=== PATIENT | male | born 1995 | race Caucasian/White ===

== ENCOUNTER → 2017-01-12 | Outpatient (CLI) | payer OTHER ==
--- NOTE | 2017-01-12 17:58 | REP ---
CT study of the right hip without contrast: History: Right femoral neck fracture possible on radiographs from this date done at [facility]. Sudden onset of pain while running. Technique: Helical scanning is acquired and 3 mm axial images are generated and viewed at bone and soft-tissue window settings. Coronal and sagittal multiplanar reformation images are reviewed. CT findings: There is no evidence of fracture in the proximal femur or right hemipelvis. There is a small accessory ossicle, which is well corticated at the superior margin of the greater trochanter on the right. This ossicle measures 1 cm in greatest diameter. The right hip joint space is preserved. There is a tiny bone island in the intertrochanteric segment of the femur. Periarticular soft tissues are unremarkable. Impression: No fracture seen. Small old accessory ossicle adjacent to the superior margin of the greater trochanter. Findings were discussed by telephone at the time of this exam with the referring provider Dr. hCong. Signed by Gabo Powell MD 01/13/2017 12:37 P
== END ==
LOC: M RAD 16:47
DX: M25.551 Pain in right hip (principal)

== ENCOUNTER → 2017-02-15 | Outpatient (CLI) | payer OTHER ==
--- NOTE | 2017-02-15 11:47 | REP ---
THREE-PHASE BONE SCAN OF THE HIPS: HISTORY: Right proximal femur enchondroma. Comparison CT study January 12, 2017. Comparison radiographs January 12, 2017. CT in the radiographs demonstrate a small old accessory ossicle adjacent to the greater trochanter. TECHNIQUE: 20.4 mCi technetium 99m MDP is injected and standard three-phase bone scan imaging was acquired. SCINTIGRAPHIC FINDINGS: The anterior and posterior flow images are normal. Blood pool images demonstrate normal symmetric soft tissue uptake bilaterally about the hips and pelvis. Delayed scan images show no area of asymmetric increased uptake in either proximal femur to suggest a metabolically active bone lesion. IMPRESSION: Normal three-phase bone scan of the hips. Signed by Gabo Powell MD 02/15/2017 05:07 P
== END ==
LOC: M RAD 07:57
DX: D16.21 Benign neoplasm of long bones of right lower limb (principal)